=== PATIENT | female | born 2000 | race Caucasian/White ===

== ENCOUNTER 2023-05-17 12:03 | Emergency (ER) | payer MEDICAID ==
[~2023-05-17] VITALS: Ht 156.2 cm; Wt 51.7 kg
[2023-05-17 12:26] VITALS: BP 108/63; PULSE 81; RESP 18; TEMP 97.2; O2SAT 98
--- NOTE | 2023-05-17 12:26 | NUR ---
PT RETURNED TO LOBBY WITH URINE SPECIMEN CUP
[2023-05-17 13:20] LABS: APPEARANCE,URINE CLEAR (CLEAR); BILIRUBIN,URINE NEGATIVE (NEGATIVE); BLOOD, URINE 3+ (NEGATIVE); COLOR,URINE YELLOW (YELLOW); LEUKOCYTE ESTERASE ,URINE NEGATIVE (NEGATIVE); NITRITE, URINE NEGATIVE (NEGATIVE); PH,URINE 8.5 (5.0-9.0); UGLUCOSE NEGATIVE (NEGATIVE)
[2023-05-17 13:46] LABS: BASOPHILS % (AUTO) 0.5 % (0.0-2.0); EOSINOPHILS # (AUTO) 0.1 K/uL (0-0.4); EOSINOPHILS % (AUTO) 0.8 % (0.0-4.0); HEMATOCRIT 36.8 % (36-48); HEMOGLOBIN 12.5 g/dL (12.0-16.0); LYMPHOCYTES # (AUTO) 1.6 K/uL (2.5-16.5); LYMPHOCYTES % (AUTO) 22.1 % (20.5-51.1); MEAN CORPUSCULAR HEMOGLOBIN 30 pg (27-31); MEAN CORPUSCULAR HGB CONC 34 g/dL (33-37); MEAN CORPUSCULAR VOLUME 87.9 fL (80-94); MONOCYTES # (AUTO) 0.5 K/uL (0.8-1.0); MONOCYTES % (AUTO) 7.2 % (1.7-9.3); NEUTROPHILS # (AUTO) 5.2 K/uL (1.8-7.7); NEUTROPHILS % (AUTO) 69.4 % (42.2-75.2); PLATELET COUNT (AUTO) 195 K/uL (140-450); RED BLOOD CELL COUNT(AUTO) 4.19 MIL/uL (4.20-5.40); RED CELL DISTRIBUTION WIDTH 13.1 % (11.6-13.7); WHITE BLOOD COUNT (AUTO) 7.4 K/uL (4.5-11.0)
[2023-05-17] MEDS ORDERED: NITR100C7 PO (14:30)
[2023-05-17 14:47] VITALS: BP 115/70; PULSE 74; RESP 17; O2SAT 98
--- NOTE | 2023-05-17 14:55 | NUR ---
Patient discharged with v/s stable. Written and verbal after care instructions given and explained. Patient verbalized understanding. Ambulatory with steady gait. All questions addressed prior to discharge. Advised to follow up with PMD.
[2023-05-18] MEDS ORDERED: ACET-10509 PO (08:23)
== END 2023-05-17 12:26 | disposition home or self-care (01) ==
LOC: MED 12:03
DX: O02.1 Missed abortion (principal); O23.91 Unspecified genitourinary tract infection in pregnancy, first trimester; R82.71 Bacteriuria; Z79.2 Long term (current) use of antibiotics; Z3A.01 Less than 8 weeks gestation of pregnancy
CPT/HCPCS: 36415; 76817; 81001; 81025; 84702; 85025; 86900; 86901; 87086; 99284

== ENCOUNTER 2023-05-18 06:30 | Emergency (ER) | payer MEDICAID ==
[~2023-05-18] VITALS: Ht 152.4 cm; Wt 51.3 kg
[~2023-05-18 06:30] MED LIST: NITR100C7 PO
[2023-05-18 06:45] VITALS: BP 117/70; PULSE 92; RESP 16; TEMP 97.8; O2SAT 99
--- NOTE | 2023-05-18 06:45 | NUR ---
to bed ambulatory
[2023-05-18 06:57] VITALS: BP 117/70; PULSE 92; RESP 16; TEMP 97.8; O2SAT 99
--- NOTE | 2023-05-18 07:22 | NUR ---
Pt report given to LARISSA TIJERINA. Transfer of care at this time.
[2023-05-18 07:28] LABS: BASOPHILS % (AUTO) 0.4 % (0.0-2.0); EOSINOPHILS # (AUTO) 0.1 K/uL (0-0.4); EOSINOPHILS % (AUTO) 1.2 % (0.0-4.0); HEMATOCRIT 38.5 % (36-48); HEMOGLOBIN 12.9 g/dL (12.0-16.0); LYMPHOCYTES # (AUTO) 3.1 K/uL (2.5-16.5); LYMPHOCYTES % (AUTO) 32.5 % (20.5-51.1); MEAN CORPUSCULAR HEMOGLOBIN 30 pg (27-31); MEAN CORPUSCULAR HGB CONC 33 g/dL (33-37); MEAN CORPUSCULAR VOLUME 88.9 fL (80-94); MONOCYTES # (AUTO) 0.8 K/uL (0.8-1.0); MONOCYTES % (AUTO) 8.3 % (1.7-9.3); NEUTROPHILS # (AUTO) 5.5 K/uL (1.8-7.7); NEUTROPHILS % (AUTO) 57.6 % (42.2-75.2); PLATELET COUNT (AUTO) 208 K/uL (140-450); RED BLOOD CELL COUNT(AUTO) 4.33 MIL/uL (4.20-5.40); WHITE BLOOD COUNT (AUTO) 9.5 K/uL (4.5-11.0)
[2023-05-18] MEDS ORDERED: ACETAMINOPHEN 325 MG TAB PO ONE (07:35)
[2023-05-18] MEDS ORDERED: ACET-10509 PO (08:23)
--- NOTE | 2023-05-18 08:47 | NUR ---
Patient discharged with v/s stable. Written and verbal after care instructions FOR MISSCARRIAGE given and explained. Patient alert, oriented and verbalized understanding of instructions. Ambulatory with steady gait. All questions addressed prior to discharge. ID band removed. Patient advised to follow up with PMD. Rx of TYLENOL XTRA STRENGTH given. Opportunity to ask questions provided and answered. COPY OF LABS PROVIDED
--- NOTE | 2023-05-18 12:02 | NUR ---
BREEZY The patient's care was reviewed and supervised by ALVA MARIE RN.
== END 2023-05-18 08:47 | disposition home or self-care (01) ==
LOC: MED 06:30
DX: O03.9 Complete or unspecified spontaneous abortion without complication (principal); Z79.899 Other long term (current) drug therapy; Z79.2 Long term (current) use of antibiotics; Z3A.01 Less than 8 weeks gestation of pregnancy
CPT/HCPCS: 36415; 84702; 85025; 99284

== ENCOUNTER 2023-05-19 21:45 | Inpatient (IN) | payer SELFPAY ==
[~2023-05-19] VITALS: Ht 147.3 cm; Wt 77.1 kg
[~2023-05-19 21:45] MED LIST changes: +ACET-10509 PO
--- NOTE | 2023-05-19 22:06 | NUR ---
PT TAKEN TO BED 2
[2023-05-19 22:11] VITALS: BP 94/50; PULSE 67; RESP 16; TEMP 97; O2SAT 100
[2023-05-19] MEDS ORDERED: NACL 0.9% 1,000 ML IV ONE (22:20)
--- NOTE | 2023-05-19 22:20 | NUR ---
22YO F CC OF VAGINAL BLEEDING TODAY ASSOCIATED WITH LOWER ABDOMINAL PAIN. REPORTS 8 WEEKS . . DENIES TRAUMA, N/V/D, PMHX, ALLERGY, FEVER. pt resting on bed, a/ox4, not in distress. on monitor, call light oriented and within reach. bed locked in lowest position. side rails x2 for safety
[2023-05-19] MEDS ORDERED: MORPHINE SULFATE 4 MG/ML SYR IVP ONE (22:25)
--- NOTE | 2023-05-19 22:30 | NUR ---
confirmed order of morphine sulphate 4mg to dr. leon. dr. leon verbalized to give slow push iv.
--- NOTE | 2023-05-19 22:36 | NUR ---
Patient being evaluated by physician at bedside.
[2023-05-19 22:53] LABS: HEMATOCRIT 33.8 % (36-48); HEMOGLOBIN 11.3 g/dL (12.0-16.0); MEAN CORPUSCULAR HEMOGLOBIN 30 pg (27-31); MEAN CORPUSCULAR HGB CONC 33 g/dL (33-37); PLATELET COUNT (AUTO) 227 K/uL (140-450); RED BLOOD CELL COUNT(AUTO) 3.79 MIL/uL (4.20-5.40); RED CELL DISTRIBUTION WIDTH 12.9 % (11.6-13.7)
[2023-05-19 23:19] LABS: ALBUMIN 3.7 g/dL (3.4-5.0); ANION GAP 16.3 (8-16); CARBON DIOXIDE 21.4 mmol/L (21-32); CREATININE 0.7 mg/dL (0.6-1.3); POTASSIUM 3.7 mmol/L (3.5-5.1); TOTAL BILIRUBIN 0.4 mg/dL (0.0-1.0)
[2023-05-19 23:27] LABS: LYMPHOCYTES % (MANUAL) 4 % (20-46); MONOCYTES % (MANUAL) 1 % (5-12)
--- NOTE | 2023-05-19 23:41 | NUR ---
US AT BEDSIDE
--- NOTE | 2023-05-20 00:37 | NUR ---
informed dr. leon of vaginal bleeding and soaked linen noted, bp: 89/50. dr. leon verbalized understanding and will order medicine
[2023-05-20] MEDS ORDERED: MISOPROSTOL 200 MCG TAB PO ONE (00:40)
[2023-05-20] MEDS ORDERED: ONDANSETRON 4 MG/2 ML VIAL IVP ONE (00:50)
--- NOTE | 2023-05-20 00:50 | NUR ---
vomiting noted, informed dr. leon. dr. leon evaluated the pt and verbalized to give .9NACl 1L fast drip and zofran 4mg iv push.
[2023-05-20] MEDS ORDERED: NACL 0.9% 1,000 ML IV ONE (00:55)
--- NOTE | 2023-05-20 03:00 | NUR ---
pt resting on bed, a/ox4, not in distress. on monitor, call light oriented and within reach. bed locked in lowest position. side rails x2 for safety
--- NOTE | 2023-05-20 06:10 | NUR ---
ermd at bedside evaluating the patient.
--- NOTE | 2023-05-20 06:48 | NUR ---
pt is pale and very weak with unsteady gait. pt reportsnof dizziness. checked bp 90/49. informed dr. lugo. dr. lugo seen the pt and will repeat cbc. transfered pt to bed 4.
[2023-05-20 07:16] LABS: LYMPHOCYTES # (AUTO) 1.2 K/uL (2.5-16.5); MEAN CORPUSCULAR HEMOGLOBIN 30 pg (27-31); MEAN CORPUSCULAR HGB CONC 34 g/dL (33-37); MONOCYTES # (AUTO) 0.5 K/uL (0.8-1.0)
[2023-05-20 07:19] LABS: BASOPHILS % (AUTO) 0.1 % (0.0-2.0); HEMATOCRIT 21.5 % (36-48); HEMOGLOBIN 7.3 g/dL (12.0-16.0); LYMPHOCYTES % (AUTO) 7.8 % (20.5-51.1); MEAN CORPUSCULAR VOLUME 88.5 fL (80-94); MONOCYTES % (AUTO) 3.5 % (1.7-9.3); NEUTROPHILS # (AUTO) 13.5 K/uL (1.8-7.7); NEUTROPHILS % (AUTO) 88.6 % (42.2-75.2); PLATELET COUNT (AUTO) 190 K/uL (140-450); RED BLOOD CELL COUNT(AUTO) 2.43 MIL/uL (4.20-5.40); RED CELL DISTRIBUTION WIDTH 13.2 % (11.6-13.7); WHITE BLOOD COUNT (AUTO) 15.3 K/uL (4.5-11.0)
[2023-05-20 07:32] VITALS: O2SAT 98
--- NOTE | 2023-05-20 07:32 | NUR ---
CONTINUATION OF CARE, REPORT RECEIVED FROM TERRENCE SHARP.
--- NOTE | 2023-05-20 07:32 | NUR ---
Pt report given to cristiano steele. cristiano steele verbalized understanding and no further question. Transfer of care at this time.
[2023-05-20] MEDS ORDERED: METHYLERGONOVINE 0.2 MG/ML AMP IM ONE (07:35)
[2023-05-20] MEDS ORDERED: POTASSIUM CHLORIDE 10 MEQ TABER PO PRN (08:05)
[2023-05-20] MEDS ORDERED: MAG SULF 2000 MG/WATER PREMIX 50 ML IV PRN (08:05)
[2023-05-20] MEDS ORDERED: ONDANSETRON 4 MG/2 ML VIAL IVP PRN (08:05)
[2023-05-20] MEDS ORDERED: ZOLPIDEM 10 MG TAB PO PRN (08:05)
[2023-05-20] MEDS ORDERED: LORazepam 2 MG/ML VIAL IVP PRN (08:05)
[2023-05-20] MEDS ORDERED: ACETAMINOPHEN 325 MG TAB PO PRN (08:05)
[2023-05-20] MEDS ORDERED: DOCUSATE SODIUM 100 MG GELCAP PO PRN (08:05)
[2023-05-20] MEDS: NACL 0.9% 1,000 ML IV SCH ×2 (08:29→17:12)
--- NOTE | 2023-05-20 09:22 | NUR ---
Patient will be admitted to care of TONY DOWLING MD. Admited to TELEMETRY. Will go to [facility]. Belongings list completed. Report to ARIAN SHARP.
--- NOTE | 2023-05-20 09:50 | NUR ---
PATIENT RECEIVED FROM ER BY ONE OF PAU VIA SHAHEEN , Mitch/SOCORRO , VSS , MONITOR APPLIED SKIN INTACT , WITH IV RIGHT AC INTACT 20GAGE , SAFETY PROACTION ON PLACE , SIDE RAILS UP X2 , BED IN LOWER POSITION CALL LIGHT WITHIN REACH , VAGINAL BLEEDING MILD , PT STILL UNDER OBSERVE .
--- NOTE | 2023-05-20 09:55 | NUR ---
The patient's care was reviewed and supervised by [facility], RN.
[2023-05-20 10:08] VITALS: PULSE 98; RESP 18; O2SAT 100
[2023-05-20 12:00] VITALS: BP 107/55; PULSE 87; PULSE 98; RESP 18; TEMP 97; O2SAT 100
[2023-05-20 14:41] LABS: HEMATOCRIT 17.6 % (36-48)
--- NOTE | 2023-05-20 14:45 | NUR ---
LAB CALLED ME PATIENT HGB 6.0 , HCT 17.6 DR DOWLING NOTIFIED , MASSAGE LEFT WAITING TO CALLED ME BACK .
[2023-05-20 15:05] VITALS: BP 98/44; PULSE 94; RESP 18; TEMP 96.7; O2SAT 100
--- NOTE | 2023-05-20 15:10 | NUR ---
MD COMMUNICATION DR DOWLING NOTIFIED RN PAGED TO INFORMED PATIENT HGB 6.0 HCT 17.9 , MASSAGE LEFT , WAITING TO CALL ME BACK .
--- NOTE | 2023-05-20 15:55 | NUR ---
DR JULISA BERNARDO CALL ME TO ORDER ABDOMEN US TO MAKE SURE UTERUS EMPTY AND DR SAID IF UTERUS EMPTY JUST GIVE BLOOD TRANSFUSION , IF HER HGB IMPROVED SHE CAN GO HOME
[2023-05-20 16:09] VITALS: PULSE 89
--- NOTE | 2023-05-20 16:50 | NUR ---
ONE UNT BLOOD TRANSFUSION STARTED , VSS BP LOW , OBSERVE CLOSELY FIRST 15MINTS , NO REACTION , PT STILL UNDER OBSERVE .
--- NOTE | 2023-05-20 17:35 | NUR ---
dr somers notified about the result of us , massage sent waiting to call us back .
--- NOTE | 2023-05-20 17:37 | NUR ---
us done result showed possibly intrauterine gestational sac along the cervical canal size of sac about 8 weeks .
--- NOTE | 2023-05-20 17:52 | NUR ---
dr somers call me back he give order to give cytotic 800microgram orally once .
[2023-05-20] MEDS ORDERED: MISOPROSTOL 200 MCG TAB PO SCH (18:00)
[2023-05-20] MEDS ORDERED: MISOPROSTOL 200 MCG TAB ONE (18:44)
--- NOTE | 2023-05-20 19:14 | NUR ---
shift report given pema mistry , all his question answer ,
--- NOTE | 2023-05-20 19:30 | NUR ---
RECEIVED REPORT FROM DAY SHIFT NURSE GEORGES FOR CONTINUITY OF CARE. PATIENT IS A&O X4, URUGUAY[place] SPEAKING. PATIENT IS ON ROOM AIR, BREATHING IS NORMAL WITH SYMMETRICAL RISE AND FALL OF CHEST. IV IS A 20G RAC; RUNNING BLOOD. PATIENT IS AWAKE, LYING IN SEMI-FOWLERS POSITION. BED IS IN LOWEST POSITION, WHEELS LOCKED, CALL LIGHT IN PLACE. WILL CONTINUE TO OBSERVE PATIENT.
[2023-05-20 20:00] VITALS: BP 100/40; PULSE 106; PULSE 93; RESP 18; TEMP 98.9; O2SAT 100
--- NOTE | 2023-05-20 21:00 | NUR ---
BLOOD FINISHED. OBTAINED VITALS FROM PATIENT. NO SIGN OF ADVERSE REACTION FROM BLOOD TRANSFUSION. Y-TUBING WAS REMOVED AND PROPERLY DISPOSED OF IN BIO-HAZARD BAG. IV WAS FLUSHED WITH NS AND PATIENT WAS HOOKED UP TO IV LINE WITH NS RUNNING AT 100. PATIENT IS AWAKE LYING IN SEMI-FOWLERS POSITION IN BED. WILL CONTINUE TO OBSERVE PATIENT.
[2023-05-20 22:31] LABS: HEMATOCRIT 22.9 % (36-48); HEMOGLOBIN 7.9 g/dL (12.0-16.0)
[2023-05-21] VITALS: BP 97/45; PULSE 110; PULSE 96; RESP 18; TEMP 98.5; O2SAT 100
--- NOTE | 2023-05-21 00:30 | NUR ---
LOOKED IN ON PATIENT. PATIENT WAS SLEEPING. BREATHING WAS NORMAL WITH SYMMETRICAL RISE AND FALL OF CHEST. WILL CONTINUE TO OBSERVE PATIENT.
[2023-05-21 04:00] VITALS: BP 111/45; PULSE 118; PULSE 94; RESP 18; TEMP 98.8; O2SAT 100
[2023-05-21] MEDS: NACL 0.9% 1,000 ML IV SCH ×2 (04:00→14:08)
--- NOTE | 2023-05-21 04:00 | NUR ---
LOOKED IN ON PATIENT. PATIENT WAS SLEEPING. BREATHING WAS NORMAL WITH SYMMETRICAL RISE AND FALL OF CHEST. IV IS RUNNING. WILL CONTINUE TO OBSERVE PATIENT.
[2023-05-21 05:12] LABS: BASOPHILS % (AUTO) 0.4 % (0.0-2.0); EOSINOPHILS % (AUTO) 0.1 % (0.0-4.0); HEMATOCRIT 21.9 % (36-48); HEMOGLOBIN 7.5 g/dL (12.0-16.0); LYMPHOCYTES # (AUTO) 1.8 K/uL (2.5-16.5); LYMPHOCYTES % (AUTO) 21.3 % (20.5-51.1); MEAN CORPUSCULAR HEMOGLOBIN 29 pg (27-31); MEAN CORPUSCULAR HGB CONC 34 g/dL (33-37); MEAN CORPUSCULAR VOLUME 85.9 fL (80-94); MONOCYTES # (AUTO) 0.6 K/uL (0.8-1.0); NEUTROPHILS % (AUTO) 71.2 % (42.2-75.2); PLATELET COUNT (AUTO) 119 K/uL (140-450); RED BLOOD CELL COUNT(AUTO) 2.56 MIL/uL (4.20-5.40); RED CELL DISTRIBUTION WIDTH 15.2 % (11.6-13.7); WHITE BLOOD COUNT (AUTO) 8.4 K/uL (4.5-11.0)
[2023-05-21 06:19] LABS: ANION GAP 11.1 (8-16); CARBON DIOXIDE 22.7 mmol/L (21-32); CREATININE 0.5 mg/dL (0.6-1.3); POTASSIUM 3.8 mmol/L (3.5-5.1)
--- NOTE | 2023-05-21 07:30 | NUR ---
ENDORSED TO DAY SHIFT NURSE DAISY FOR CONTINUITY OF CARE. PATIENT IS STABLE.
[2023-05-21 08:00] VITALS: BP 101/61; PULSE 113; PULSE 99; RESP 18; TEMP 97.2; O2SAT 100
--- NOTE | 2023-05-21 09:51 | NUR ---
PATIENT HAS BEEN SCREENED AND CATEGORIZED MODERATE NUTRITION RISK. PATIENT WILL BE SEEN WITHIN 3-5 DAYS OF ADMISSION. 05/20/23-05/25/[address]
[2023-05-21 16:00] VITALS: BP 121/66; PULSE 104; RESP 18; TEMP 97.6; O2SAT 96
[2023-05-21 17:20] LABS: HEMOGLOBIN 6.8 g/dL (12.0-16.0)
[2023-05-21 17:21] LABS: HEMATOCRIT 19.7 % (36-48)
--- NOTE | 2023-05-21 17:37 | NUR ---
AT 1719, PATIENT'S HGB =6.8, HCT=19.7. DR. DOWLING INFORMED. AT THIS TIME NURSE RECEIVE TO TO TRANSFEUSE I UNIT PRBC. PATIENT MIGHT MIGHT DISCHARGE HOME TOMORROW. WILL CONTINUE TO MONITOR. Addendum: 05/21/23 at 1928 by Regina Ferraro RN @1820, 2 NURSES VERIFIED BLOOD TOGETHER, AT 1845, BLOOD TRANSFUSING START WITH PATIENT'S VITAL (T-P-R: 98.2-102-18, BP: 94/57, O2 SAT: 100% IN RA WITH NO PAIN REPORT); 1900 VITAL (T-P-R: 98.2-97-18, BP: 94/54, O2 SAT 99% IN RA W/O PAIN REPORT); 1930 VITAL (T-P-R: 98.4-90-18, BP: 92/53, O2 SAT 100% IN RA W/O PAIN REPORT) WILL ENDORSE TO PM SHIFT NURSE TO COMPLETE BLOOD TRANSFUSION.
--- NOTE | 2023-05-21 19:30 | NUR ---
RECEIVED REPORT FROM DAY SHIFT NURSE DAISY FOR CONTINUITY OF CARE. PATIENT IS A&O X4, SLOV[place] SPEAKING. PATIENT IS ON ROOM AIR, BREATHING IS NORMAL WITH SYMMETRICAL RISE AND FALL OF CHEST. IV IS A 20G RAC; RUNNING BLOOD. PATIENT IS AWAKE, LYING IN SEMI-FOWLERS POSITION. BED IS IN LOWEST POSITION, WHEELS LOCKED, CALL LIGHT IN PLACE. WILL CONTINUE TO OBSERVE PATIENT.
[2023-05-21 20:00] VITALS: BP 93/55; PULSE 98; RESP 18; TEMP 97; O2SAT 100
--- NOTE | 2023-05-21 22:33 | NUR ---
PATIENT'S BLOOD FINISHED AT 2144. IDENTIFYING LABELS WERE REMOVED FROM BLOOD BAG; BLOOD WAS PLACED IN BIO-HAZARD BAG AND DISPOSED OF IN APPROPRIATE BIN. POST TRANSFUSION VITALS WERE TAKEN. H&H ORDERED FOR 2345. PATIENT IS AWAKE LYING SEMI-FOWLERS IN BED. WILL CONTINUE TO OBSERVE PATIENT.
[2023-05-21 23:45] LABS: HEMATOCRIT 27.4 % (36-48); HEMOGLOBIN 9.3 g/dL (12.0-16.0)
--- NOTE | 2023-05-22 01:00 | NUR ---
LOOKED IN ON PATIENT. PATIENT WAS SLEEPING; BREATHING WAS NORMAL WITH SYMMETRICAL RISE AND FALL OF CHEST. IV IS RUNNING NS AT 100. WILL CONTINUE TO OBSERVE PATIENT.
[2023-05-22 04:00] VITALS: BP 104/58; PULSE 97; RESP 18; TEMP 96.7; O2SAT 100
--- NOTE | 2023-05-22 04:00 | NUR ---
LOOKED IN ON PATIENT. PATIENT HAS SLEPT THROUGHOUT THE NIGHT. BREATHING IS NORMAL WITH SYMMETRICAL RISE AND FALL OF CHEST. WILL CONTINUE TO OBSERVE PATIENT.
[2023-05-22 05:28] LABS: BASOPHILS % (AUTO) 0.5 % (0.0-2.0); EOSINOPHILS % (AUTO) 0.2 % (0.0-4.0); HEMATOCRIT 26.1 % (36-48); HEMOGLOBIN 9.1 g/dL (12.0-16.0); LYMPHOCYTES # (AUTO) 1.2 K/uL (2.5-16.5); LYMPHOCYTES % (AUTO) 23.5 % (20.5-51.1); MEAN CORPUSCULAR HEMOGLOBIN 30 pg (27-31); MEAN CORPUSCULAR HGB CONC 35 g/dL (33-37); MEAN CORPUSCULAR VOLUME 84.9 fL (80-94); MONOCYTES # (AUTO) 0.5 K/uL (0.8-1.0); MONOCYTES % (AUTO) 9.5 % (1.7-9.3); NEUTROPHILS # (AUTO) 3.3 K/uL (1.8-7.7); NEUTROPHILS % (AUTO) 66.3 % (42.2-75.2); PLATELET COUNT (AUTO) 115 K/uL (140-450); RED BLOOD CELL COUNT(AUTO) 3.08 MIL/uL (4.20-5.40); RED CELL DISTRIBUTION WIDTH 14.9 % (11.6-13.7)
[2023-05-22] MEDS: NACL 0.9% 1,000 ML IV SCH ×2 (05:49)
[2023-05-22 05:57] LABS: ANION GAP 16.3 (8-16); CREATININE 0.5 mg/dL (0.6-1.3); POTASSIUM 3.3 mmol/L (3.5-5.1)
--- NOTE | 2023-05-22 07:37 | NUR ---
ENDORSED TO DAY SHIFT NURSE DAISY FOR CONTINUITY OF CARE. PATIENT IS STABLE.
[2023-05-22 08:00] VITALS: BP 98/49; PULSE 95; PULSE 97; RESP 18; TEMP 97.4; O2SAT 100
[2023-05-22] MEDS ORDERED: POTASSIUM CHLORIDE 10 MEQ TABER PO SCH (08:15)
[2023-05-22] MEDS ORDERED: MAG SULF 2000 MG/WATER PREMIX 50 ML IV SCH (08:15)
[2023-05-22] MEDS ORDERED: FERR325E14 PO (12:17)
[2023-05-22] MEDS ORDERED: ASCO500T95 PO (12:17)
[2023-05-22 13:58] VITALS: BP 98/49; PULSE 95; RESP 18; TEMP 97.4
--- NOTE | 2023-05-22 15:44 | NUR ---
DISCHARGE PATINE IN STABLE CONDITION TO HOME PER PCP ORDER. DISCHARGE INSTRUCTION GIVE VIA [employer] TECHNICAL SUPPORT INTERN #[id number]. PATIENT AWARE THAT SHE NEED CALL PHARMACY FOR PRESCRIPTION. DISCHARGE CONSENT SIGN, IV ACCES & WRIST BAND REMOVE PRIOR WALK PATIENT OUT THE FACILITY
== END 2023-05-22 14:50 | disposition home or self-care (01) | DRG 779 ==
LOC: MED 21:45 → MTU 05-20 08:00
PROVIDERS: ADMIT Family Medicine; ATTEND Family Medicine
PROC: 30233N1 Transfusion of Nonautologous Red Blood Cells into Peripheral Vein, Percutaneous Approach (ICD-10-PCS; principal; 2023-05-20)
DX: O03.89 Complete or unspecified spontaneous abortion with other complications (principal); D62 Acute posthemorrhagic anemia; R65.10 Systemic inflammatory response syndrome (SIRS) of non-infectious origin without acute organ dysfunction; E83.51 Hypocalcemia; D72.829 Elevated white blood cell count, unspecified; E83.42 Hypomagnesemia; E87.6 Hypokalemia; Z79.1 Long term (current) use of non-steroidal anti-inflammatories (NSAID); Z79.899 Other long term (current) drug therapy
CPT/HCPCS: 36415; 76801; 76856; 80048; 80053; 83735; 84702; 85018; 85025; 86886; 86900; 86901; 86920; 87081; 96361; 96372; 96374; 96375; 99291; J2210; J2270; J2405; J3475; P9016; Q0092